=== PATIENT | male | born 1980 | race Caucasian/White ===

== ENCOUNTER → 2016-11-30 | Outpatient (CLI) | payer OTHER ==
[~2016-11-30] MED LIST: OXYC-57 PO
[2016-11-30 09:29] LABS: BASO % 0.4 %; BASO ABS # 0.03 K/uL (0-0.2); COMPLETE YES; EOS % 1.6 %; HEMATOCRIT 44.6 % (42-52); IG% 0.3 %; LYMPH % 27.1 %; LYMPH ABS # 2.01 K/uL (1.2-3.4); MEAN CELL VOLUME 83.2 fL (80-100); MEAN CORPUSCULAR HEMOGLOBIN 27.8 pg (25-34); MEAN CORPUSCULAR HGB CONC 33.4 g/dl (32-36); MEAN PLATELET VOLUME 10.9 fL (7.4-10.4); MONO % 7.5 %; NEUT % 63.1 %; PLATELET COUNT 287 K/uL (130-400); RED BLOOD COUNT 5.36 M/uL (4.7-6.1); WHITE BLOOD COUNT 7.43 K/uL (4.8-10.8)
[2016-11-30 09:38] LABS: ALT/SGPT 35 U/L (12-78); AST/SGOT 15 U/L (15-37); BLOOD UREA NITROGEN 14 mg/dl (7-18); BUN/CREATININE RATIO 14.3 (10-20); CALCIUM 9.2 mg/dl (8.5-10.1); CARBON DIOXIDE 29 mmol/L (21-32); CHLORIDE 107 mmol/L (98-107); GLUCOSE 93 mg/dl (70-99); POTASSIUM 4.4 mmol/L (3.5-5.1); SODIUM 141 mmol/L (136-145)
[2016-11-30 09:41] LABS: ALB/GLOB RATIO 1.3 (0.9-2); ALKALINE PHOSPHATASE 56 U/L (45-117); CHOLESTEROL 137 mg/dl (0-200); HDL CHOLESTEROL 34 mg/dl; LDL CHOLESTEROL CALCULATED 72 mg/dl; TRIGLYCERIDES 153 mg/dl (0-150); VERY LOW DENSITY LIPOPROT CALC 31 mg/dl
== END | disposition home or self-care (01) ==
LOC: C.LAB 08:16
PROVIDERS: ATTEND Neuromusculoskeletal Medicine & OMM
DX: Z00.00 Encounter for general adult medical examination without abnormal findings (principal); Z82.49 Family history of ischemic heart disease and other diseases of the circulatory system